=== PATIENT | female | born 1995 | race African-American/Black ===

== ENCOUNTER 2019-06-22 21:31 | Emergency (ER) | payer OTHER ==
[~2019-06-22] VITALS: Ht 160 cm; Wt 61.7 kg
[~2019-06-22 21:31] MED LIST: CIPROFLOXACIN500 M1 PO; CLARINEX-D 121 EACH PO; DOXYCYCLINE 10100 MG PO; NAPROSYN500 MG PO; NEXPLANON68 MG SQ; NORCO 5-325 TA1 EACH PO; NUVARING VAGIN1 EACH VG
[2019-06-22 22:11] LABS: URINE BILIRUBIN NEGATIVE (Negative); URINE BLOOD 3+ (Negative); URINE CLARITY CLOUDY; URINE COLOR YELLOW; URINE GLUCOSE-RANDOM* NEGATIVE (Negative); URINE KETONES NEGATIVE (Negative); URINE LEUKOCYTES 1+ (Negative); URINE NITRITE POSITIVE (Negative); URINE PROTEIN (DIPSTICK) 2+ (Negative)
[2019-06-22 22:31] LABS: SQUAMOUS 0-3 Few /LPF (0-3); WBC CLUMPS Moderate (None Seen)
[2019-06-22 22:32] LABS: CASTS None Seen /LPF (None Seen); CRYSTALS None Seen /LPF (None Seen); MUCUS 0-3 Light strn/LPF (None Seen); URINE RBC >20 Many /HPF (0-2)
[2019-06-22] MEDS ORDERED: FLAGYL500 M1 PO (22:38)
[2019-06-22] MEDS ORDERED: KEFLEX500 M1 PO (22:38)
[2019-06-23 00:20] VITALS: BP 126/73
== END 2019-06-23 00:22 | disposition home or self-care (01) ==
LOC: ER 21:31
PROVIDERS: Nurse Practitioner
DX: N39.0 Urinary tract infection, site not specified (principal); N76.0 Acute vaginitis; B96.89 Other specified bacterial agents as the cause of diseases classified elsewhere

== ENCOUNTER 2020-01-19 18:50 | Emergency (ER) | payer OTHER ==
[~2020-01-19] VITALS: Ht 157.5 cm; Wt 64.9 kg
[~2020-01-19 18:50] MED LIST changes: +FLAGYL500 M1 PO; +KEFLEX500 M1 PO
[2020-01-19] MEDS ORDERED: ETONOGESTREL-E1 EACH VAG (19:06)
[2020-01-19] MEDS ORDERED: MUPIROCIN22 GM TOP (19:06)
[2020-01-19] MEDS ORDERED: CLINDAMYCIN HC150 MG PO (19:40)
[2020-01-19] MEDS ORDERED: IBU600 MG PO (19:41)
[2020-01-19 19:54] VITALS: BP 122/72
== END 2020-01-19 19:55 | disposition home or self-care (01) ==
LOC: ER 18:50
DX: N76.2 Acute vulvitis (principal)